=== PATIENT | male | born 1950 | race Caucasian/White ===

== ENCOUNTER 2019-03-31 18:42 | Emergency (ER) | payer OTHER ==
[2019-03-31 18:56] LABS: #Basophils 0.1 thou/uL (0.0-0.2); #Eosinphils 0.4 thou/uL (0.0-0.7); #Lymphocytes 1.8 thou/uL (1.20-3.40); #Monocytes 0.7 thou/uL (0.11-0.59); #Neutrophils 7.3 thou/uL (1.40-6.50); %Basophils 0.9 % (0.0-1.0); %Eosinophils 3.5 % (0.0-10.0); %Lymphocytes 17.7 % (21.0-51.0); %Monocytes 6.7 % (0.0-10.0); %Neutrophils 71.1 % (42.0-75.0); Hemoglobin 17.5 g/dL (14.0-18.0); Mean Corpuscular HGB CONC 32.9 g/dL (32.0-36.0); Mean Corpuscular Hemoglobin 29.2 pg (27.0-31.0); Mean Corpuscular Volume 88.7 fL (78.0-98.0); Mean Platelet Volume 6.9 fL (7.4-10.4); Platelet Count 248 thou/uL (130-400); RBC Distribution Width 11.7 % (11.5-14.5); White Blood Cell (WBC) Count 10.2 thou/uL (4.8-10.8)
[2019-03-31 19:03] LABS: INR-International Normal Ratio 0.9; PTT 26.3 SEC (22.9-36.1); Prothrombin Time 12.5 SEC (12.0-14.7)
[2019-03-31 19:13] LABS: ALT (SGPT) 18 U/L (8-55); AST (SGOT) 20 U/L (5-34); Albumin 4.5 g/dL (3.4-4.8); Alkaline Phosphatase 82 U/L (40-150); Anion Gap 18 mmol/L (10-20); BUN (Urea Nitrogen) 11 mg/dL (8.4-25.7); Bilirubin, Total 0.9 mg/dL (0.2-1.2); Calc. Creatinine Clearance 0 mL/min (70-130); Calcium 9.4 mg/dL (7.8-10.44); Carbon Dioxide 24 mmol/L (23-31); Chloride 95 mmol/L (98-107); Estimated GFR-MDRD 59; Globulin 2.6 g/dL (2.4-3.5); Glucose 99 mg/dL (80-115); Potassium 3.9 mmol/L (3.5-5.1); Protein, Total 7.1 g/dL (5.8-8.1); Sodium 133 mmol/L (136-145)
[2019-03-31 19:15] LABS: CKMB 2.8 ng/mL (0-6.6); Troponin I 0.015 ng/mL (< 0.028)
[2019-03-31] MEDS ORDERED: Labetalol HCl 100 MG/20 ML VIAL ONE (19:16)
--- NOTE | 2019-03-31 19:18 | CT ---
CT brain noncontrast: DATE: 03/31/2019 Time: 6:54 PM HISTORY: 68-year-old male with stroke symptoms: Left facial droop and left-sided numbness. Dr. Caruso discussed the findings by telephone with Dr. Du of the emergency Department in [facility] at 7:10 PM on 03/31/2019 COMPARISON: No prior brain CTs FINDINGS: There is an approximately 3 x 3 x 2.5 cm acute intra-axial hematoma in the lateral aspect of the righ t frontal lobe. Posterior to that, there is an approximately 2 x 0.5 x 1 cm region of acute hemorrhage at the right p arieto-occipital junction, spilling over into adjacent subarachnoid space. There is a 2 x 2 x 0.8 cm acute intra-axial hematoma in the right occipital lobe laterally. Based on the findings of amyloid angiopathy on the prior MRI of 05/06/2015, it is assumed that these h emorrhages aren't those of amyloid angiopathy. There are diffuse moderate chronic ischemic white matter changes. Ventricles are normal in size and c onfiguration. No mass effect or midline shift. No extra-axial fluid collection. Calvarium is intact. IMPRESSION: 1. There are 3 acute intra-axial hematomas in the right cerebral hemisphere.. 2. The largest is in the right lateral frontal lobe. 3. Suspected etiology is amyloid angiopathy. 4. Minimal mass effect.
== END 2019-03-31 19:37 | disposition short-term general hospital (02) ==
LOC: MADERS 18:42
CPT/HCPCS: 36416; 70450; 80053; 82553; 84484; 85025; 85610; 85730; 93005; 94760; J7050